=== PATIENT | female | born 1950 | race Caucasian/White ===

== ENCOUNTER 2024-03-04 12:00 | Inpatient (IN) | payer MEDICARE, SELFPAY ==
[2024-03-04] VITALS (7 sets, daily range): BP systolic 144–162; BP diastolic 64–89; BMI 26.2
--- NOTE | 2024-03-04 07:32 | ED.GENMED ---
History of Present Illness
General
Chief Complaint: Abdominal Symptoms
Source: patient
Exam Limitations: none
Time Seen by Provider: 03/04/24 07:04
Nursing documentation reviewed up to this point in time: agreed with
Travel History
Have you had any contact with someone who has COVID-19?: No
Do you have any symptoms of coronavirus? Fever > 100 degrees, chills, cough, shortness of breath, sore throat, loss of taste or smell, muscle aches, or headache?: No
History of Present Illness
History of Present Illness:
73 yr old female presents to the ED for evaluation. Pt reports she has a history of anxiety and has never been on prescribe medication. In fact she reports she recently had a physical with a family doctor [place] and was given a prescription for
Zoloft has not started yet. Typically with anxiety she will gag and reports last night she was up all night gagging feeling very nervous and vomiting. She does have some intermittent diarrhea. She feels swelling in her glands from vomiting. She
denies any abdominal pain. She denies any chest pain or shortness of breath. She does feel week.
Family at bedside.
She does drink 2 glasses of wine per day.
Review of Systems
Review of Systems
Allergies reviewed?: Yes
All Other Systems: ROS reviewed and negative except as documented in HPI and ROS
Constitutional: Reports no symptoms
Respiratory: Reports no symptoms
Cardiac: Reports no symptoms
ABD/GI: Reports nausea, vomiting and diarrhea
: Reports no symptoms
Musculoskeletal: Reports no symptoms
Neurological: Reports no symptoms
Psychiatric: Reports no symptoms
Phy Exam
General Physical Exam
General Presentation: no apparent distress
General age: appears stated age
General Skin: warm and dry
General Habitus: normal
General Mental: alert
General Hydration: dry mucous membranes
Cardiovascular Exam
Cardiovascular Exam: no murmur, normal peripheral pulses and tachycardia
Pulmonary Exam
Pulmonary Exam: lungs clear and no respiratory distress
Neurological Exam
Neurological Exam: alert and oriented x3
Musculoskeletal Exam
Musculoskeletal Exam: full ROM
Skin Exam
Skin Exam: normal color and warm/dry
Psychiatric Exam
Psychiatric Exam: normal mood/affect
Course
Orders/Labs/Results
Orders:
Orders
03/04/24 07:20
CMP [Comprehensive Metabolic Panel] Urgent
Complete Blood Count/With Diff Urgent
03/04/24 07:27
Electrocardiogram (*1) Urgent
Reason for Study: Bradycardia / Tachycardia
EKG- Treatment ONCE
03/04/24 07:31
0.9% Sodium Chloride 1000 ml [Nss] 1,000 ml IV BOLUS
Lorazepam [Ativan] 0.5 mg IV NOW STA
Ondansetron Injectable [Zofran] 4 mg IV NOW STA
03/04/24 08:49
US Abdomen Complete/Upper Urgent
Comment:
Reason For Exam: nausea elevated lfts and elevated wbc
03/04/24 Lunch
Regular
At Your Request: Full Participation
03/04/24 10:13
UA Reflex to Culture [Urinalysis Reflex To Culture] Urgent
Date Specimen was Collected: 03/04/24
Time Specimen was Collected: 10:12
03/04/24 10:29
Rapid Strep Group A Urgent
ROSALBA Source: Throat/Pharynx
Specimen Description:
Date Specimen was Collected: 03/04/24
Time Specimen was Collected: 09:15
03/04/24 11:40
Admit/Transfer Patient As Directed
Co-Sign Provider:
Level of Care: Inpatient admission
Assign to:: Telemetry
Physician / Group: hospitalist-Hiram
Diagnosis: symptomatic hyponatremia
Reason for Telemetry: Arrhythmia
Date to Stop Telemetry: 03/07/24
Time to Stop Telemetry: 11:00
Reason for Hospitalization: needs IVF
psych eval
renal eval
Expected length of stay greater than two midnights?: Yes
ELOS- Estimated Length of Stay in days: 2
I certify the patient meets the requirements for IP care: Yes
03/04/24 11:44
Code Status As Directed
Resuscitation Status: Full Code
03/04/24 11:45
0.9% Sodium Chloride 1000 ml [Nss] 1,000 ml IV 75 mls/hr
03/04/24 11:49
Benzocaine 20% [Hurricaine Brogan] See Dose Instructions TOPICAL Q6HPRN PRN
03/04/24 12:40
Acetaminophen [Tylenol] 650 mg PO Q4HPRN PRN
Bisacodyl [Dulcolax] 10 mg RECTAL [id number] PRN
Docusate W/Senna [Senokot-S] 1 tablet PO BIDPRN PRN
Ondansetron Injectable [Zofran] 4 mg IV Q6HPRN PRN
Polyethylene Glycol Powder [Miralax] 17 grams PO DAILYPRN PRN
03/04/24 12:40
PSYCHIATRY CONSULT Routine
Consulting Provider: Jared Aguirre
Was physician already notified: Yes
VTE Contraindication Routine
VTE Mechanical Device Contraindication: Low Risk- LOS < 2 days
Pharmocologic Contraindication: Low Risk- LOS < 2 days
Risk assessment completed and pt is low risk: Yes
Activity As Directed
Activity Level: Out of Bed-Early Mobility
Intake/ Output As Directed
Frequency: Per unit guidelines
Vital Signs As Directed
Frequency: Per unit guidelines
Pt Eval And Treat Routine
Activity Level: Out of Bed-Early Mobility
03/04/24 13:02
Free T4 Routine
Osmolality Serum [Serum Osmolality] Routine
TSH Reflex To Free T4 Routine
03/04/24 18:24
Basic Metabolic Panel Routine
03/04/24 22:00
Metoprolol Xl [Toprol Xl] 100 mg PO HS
03/05/24 06:00
Levothyroxine [Synthroid] 137 mcg PO DAILY@0600
03/05/24 06:32
Complete Blood Count/No Diff IN AM
Comprehensive Metabolic Panel IN AM
Magnesium IN AM
03/05/24 08:00
Calcium Carbonate [Oscal Vitaly 500] 500 mg PO DAILY
Cholecalciferol (Vitamin D3) [VITAMIN D3 (cholecalciferol)] 25 mcg PO DAILY
Multivitamin [Theragran] 1 tablet PO DAILY
03/07/24 11:00
DC Protocol for Telemetry ONCE
Abnormal Lab Results
03/04/24 03/04/24
07:20 10:13
WBC 13.9 H 10^3/uL
(4.8-10.8)
RBC 4.08 L 10^6/uL
(4.20-5.40)
MCH 33.8 H pg
(27.0-31.0)
MCHC 37.2 H g/dL
(33.0-37.0)
Abs Immat Gran (auto) 0.1 H 10^3/uL
(0-0.05)
Absolute Neuts (auto) 12.0 H 10^3/uL
(1.4-6.5)
Absolute Lymphs (auto) 1.1 L 10^3/uL
(1.2-3.4)
Absolute Monos (auto) 0.8 H 10^3/uL
(0.1-0.6)
Neutrophils % 85.9 H %
(42.2-75.2)
Lymphocytes % 7.7 L %
(20.5-51.1)
Sodium 127 L mmol/L
(135-145)
Potassium 3.4 L mmol/L
(3.5-5.1)
Chloride 88 L mmol/L
(98-107)
Glucose 158 H mg/dl
(70-99)
Total Bilirubin 2.8 H mg/dl
(0.2-1.3)
AST 119 H U/L
(14-36)
ALT 68 H U/L
(0-35)
Urine Ketones 2+ A
(Negative)
03/04/24 07:20
03/04/24 07:20
Vital Signs
Initial and Last Documented VS:
Initial Vital Signs
Temp Pulse Resp BP Pulse Ox
98.6 F 119 20 150/71 97
03/04/24 06:56 03/04/24 06:56 03/04/24 06:56 03/04/24 06:56 03/04/24 06:56
Last Documented Vital Signs
Temp Pulse Resp BP Pulse Ox
98.0 F 80 17 156/89 97
03/05/24 07:00 03/05/24 07:00 03/05/24 07:00 03/05/24 07:00 03/05/24 08:00
MDM/Problems Addressed
Differential Diagnosis Includes:
Not limited to anxiety dehydration electrolyte abnormality
MDM/Problems Addressed:
Patient is a 73-year-old female who presented with nausea gagging dry heaving intermittent diarrhea from anxiety. She reports she has had this several times in the past however anxiety is not treated. She recently had a family doctor appointment
and received a prescription for zolpidem not yet started. She complained of mild sore throat and felt that her glands were swollen because of all the vomiting. She feels that this is her anxiety she reports her and her are going through
some financial issues. She presents awake alert no acute distress. Patient was given small dose of Ativan Zofran and fluids. White count is minimally elevated the patient denies any fevers LFTs mildly elevated therefore ultrasound was done which
shows mild hepatomegaly diffuse fatty liver but no other acute findings/there is some suspected small parapelvic left renal cyst. With regards to liver functions patient is at no prior labs here and bilirubin is elevated 2.8 AST 119 ALT 68. Sodium
however is low at 127. With vomiting and low sodium would recommend admission.
*Critical Care Note
Total Time (30-74mins, 75-104mins- exclusive of procedures): Not Applicable
ED Attending Note
-
Portions of this chart may have been created with voice recognition software.� Occasional wrong word or��sound alike� substitutions may have occurred due to the inherent limitations of voice recognition software.
Discharge Plan
Departure
Patient Disposition: Admit
Date of Disposition: 03/04/24
Time of Disposition: 11:01
Admit to: Telemetry
Admit to doctor: hospitalist
Presentation/result/management discussed w/ accepting MD/DO: Hospitalist
Patient with high blood pressure during this ER visit?: Yes
Condition: Fair
Covid-19: Not Applicable
Discharge Problem:
Acute hyponatremia, Anxiety, Weakness
Interventions
Interventions:
*Risk Screen - Suicide Last Done: 03/04/24 07:28
*General Assessment Last Done: 03/04/24 07:28
*Neglect/Abuse Screening Last Done: 03/04/24 07:28
*ED COVID-19 Vaccine History Last Done: 03/04/24 07:28
*Nursing Disposition Last Done: 03/04/24 12:40
GU-Jqgdpw-Fisbqvvmdg Assessment Last Done: 03/04/24 07:28
Discharge Date and Time
Discharge Date/Time: 03/04/24 12:41
[2024-03-04] MEDS: NSS 1000 IV ×2 (07:42→13:00)
[2024-03-04] MEDS: ZOFRAN 4 MG IV (07:42)
[2024-03-04] MEDS: ATIVAN 0.5 MG IV (07:43)
[2024-03-04 07:47] LABS: % Basophils 0.4 % (0-2); % Immature Granulocytes 0.5 % (0-0.5); % Lymphocytes 7.7 % (20.5-51.1); % Monocytes 5.5 % (1.7-9.3); % Neutrophils 85.9 % (42.2-75.2); Absolute Basophils 0.1 10^3/uL (0-0.2); Absolute Immature Granulocytes 0.1 10^3/uL (0-0.05); Absolute Lymphocytes 1.1 10^3/uL (1.2-3.4); Absolute Monocytes 0.8 10^3/uL (0.1-0.6); Hematocrit 37.1 % (37.0-47.0); Hemoglobin 13.8 g/dL (12.0-16.0); Mean Corp Hgb Conc. 37.2 g/dL (33.0-37.0); Mean Corpuscular Hgb 33.8 pg (27.0-31.0); Mean Corpuscular Volume 90.9 fL (81.0-99.0); Mean Platelet Volume 9.8 fL (7.4-10.4); Nucleated Red Blood Cells % 0 %; Platelet Count 240 10^3/uL (130-400); Red Blood Cell Count 4.08 10^6/uL (4.20-5.40); Red Cell Dist. Width 11.9 % (11.5-14.5); White Blood Cell Count 13.9 10^3/uL (4.8-10.8)
[2024-03-04 07:53] LABS: ALT (SGPT) 68 U/L (0-35); AST (SGOT) 119 U/L (14-36); Albumin 4.8 g/dl (3.5-5.0); Alkaline Phosphatase 106 U/L (38-126); Blood Urea Nitrogen 15 mg/dl (7-17); Calcium 9.4 mg/dl (8.4-10.2); Carbon Dioxide 22 mmol/L (22-30); Chloride 88 mmol/L (98-107); Glucose 158 mg/dl (70-99); Potassium 3.4 mmol/L (3.5-5.1); Sodium 127 mmol/L (135-145); Total Bilirubin 2.8 mg/dl (0.2-1.3); Total Protein 8.1 g/dl (6.3-8.2); eGFR > 60.00
[2024-03-04 10:36] LABS: Urine Albumin Negative (Neg - Trace); Urine Bilirubin Negative (Negative); Urine Character Clear (Clear); Urine Color Yellow; Urine Glucose Negative (Negative); Urine Ketone 2+ (Negative); Urine Leukocyte Negative (Negative); Urine Nitrite Negative (Negative); Urine Occult Blood Negative (Negative); Urine Specific Gravity 1.015 (<1.030); Urine Urobilinogen Negative (Neg - 1+)
--- NOTE | 2024-03-04 11:39 | CM ---
Addendum entered by Sravani Banerjee 03/04/24 12:04:
Patient daughter Kassie corrected phone number of Sim patient son to [phone]. Patient moved to be closer to children and daughter is 2 miles from patient new home.
Original Note:
Patient seen at bedside with physician and patient also present. Patient lives with in a 2 story home. Patient has no DME at home with no VN supports. Patient stated her PCP is Dr. Ogden, in [place] and she uses the [facility] on [address] [place]. 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 Patient son will provide transportation and his name is Sim. phone number is [phone]. Patient indicated that she would be happy if CM talked to patient son. Patient
indicated that she does use alcohol and would be willing to talk to Psych about anxiety. CM will continue to follow for discharge planning needs.
Plan; home with no needs vs home with VN watch for assessments.
--- NOTE | 2024-03-04 11:50 | HPS.HSE ---
Family Physician
-
Family Physician: Dr. Marlena Ogden
Chief Complaint
-
Nausea, vomiting, diarrhea
History of Present Illness
Patient is a 73-year-old female with a past medical history significant for anxiety who self medicates with alcohol, 2 glasses of wine per night. She stated that she has had nausea and vomiting since yesterday and diarrhea for at least 2 days prior
to admission. She stated that she has not been eating or drinking, felt dehydrated, and her legs and hands felt shaky. She has not had alcohol for the last 4 days although she denies any withdrawal symptoms as a result of stopping alcohol. She
attributes the shakiness and significant gag reflex more towards anxiety. She denied fevers and abdominal pain. She states that food has no flavor. No one else is sick at home. When her symptoms did not improve she came to the hospital for
evaluation. Workup here finds her to have a sodium level of 124, elevated white blood cell count of 13.9 and patient is being admitted.
Medical History
Past Medical History
Past Medical History: Reports Other
Additional Past Medical History:
Anxiety
Essential hypertension
Hypothyroidism
Hyperlipidemia
Past Surgical History: Reports None and Other
Social History
Tobacco: Non-smoker
Alcohol: Daily (2 glasses of wine per night--no alcohol intake for the last 4 days)
Drug: None
Personal:
Living: With Family
Family History
Family History: Other (Mother and sister have/had Alzheimer's disease, brother with MS)
Allergies / Home Medications
Allergies reflects when Allergies were last updated in [employer].
Home Medications with original date entered in [employer]
Allergy/Medication List:
Allergies
Allergy/AdvReac Type Severity Reaction Status Date / Time
No Known Allergies Allergy Unverified 03/04/24 07:03
Home Medications
calcium carbonate 500 mg PO DAILY 03/04/24
cholecalciferol (vitamin D3) 25 mcg (1,000 unit) tablet (Vitamin D3) 25 mcg PO DAILY 03/04/24
ibuprofen 200 mg tablet (Advil) 400 mg PO Q6HPRN PRN mild pain 03/04/24
levothyroxine 137 mcg tablet 137 mcg PO DAILY 03/04/24
lisinopril 20 mg-hydrochlorothiazide 25 mg tablet 1 tab PO HS 03/04/24
loperamide 2 mg tablet (Imodium A-D) 2 mg PO QIDPRN PRN diarrhea 03/04/24
metoprolol succinate 100 mg tablet,extended release 24 hr 100 mg PO HS 03/04/24
simvastatin 20 mg tablet 20 mg PO HS 03/04/24
therapeutic multivitamin 1 tab PO DAILY 03/04/24
Review of Systems
-
History Source: Patient and Family
A 12 point ROS was completed and negative except as noted: Yes
Constitutional: Denies Fever
EENT: Reports Sore Throat
Respiratory: Denies Cough or Trouble Breathing
Cardiac: Denies Chest Pain or Palpitations
Abdomen/GI: Reports Nausea, Vomiting and Diarrhea; Denies Abdominal Pain or Constipated
: Reports No Symptoms
Musculoskeletal: Reports Other (shakiness/weakness)
Skin: Reports No Symptoms
Neurological: Reports Dizzy
Endocrine: Reports No Symptoms
Hematologic/Lymphatic: Reports No Symptoms
Psych: Reports Anxiety
Physical Exam
Vital Signs
Vital Signs
Temp Pulse Resp BP Pulse Ox
98.6 F 101 18 144/70 99
03/04/24 06:56 03/04/24 11:03 03/04/24 11:03 03/04/24 11:03 03/04/24 11:03
Physical Exam
General: Well Developed, Well Nourished and No Apparent Distress
HEENT: NormoCephalic, Anicteric and Pharyngeal Efythema (no exudate)
Respiratory: Clear; No Wheezes, Rales, Rhonchi or Crackles
Cardiac: S1/S2, Regular Rhythm and Tachycardia
GI: Soft, Non Tender, Non Distended and Normal Bowel Sounds
Musculoskeletal: No Clubbing, No Cyanosis and No Edema
Skin: Warm and Dry
Neuro: Awake and Alert
Psych: Anxious
Laboratory Results
-
03/04/24 07:20
03/04/24 07:20
Laboratory Results
Total Bilirubin 2.8 mg/dl (0.2-1.3) H 03/04/24 07:20
AST 119 U/L (14-36) H 03/04/24 07:20
ALT 68 U/L (0-35) H 03/04/24 07:20
Alkaline Phosphatase 106 U/L (38-126) 03/04/24 07:20
Impression/Plan
-
Pt is a 73 year old female
n/v/d --(despite elevated HR and WBC count DO NOT suspect sepsis, WBC likely reactive)-- likely due to anxiety but cannot rule out gastroenteritis or due to hyponatremia -- ADMIT to tele--regular diet as tolerated--NSS 75ml x 1L--consult psych--if
no improvement with anti-emetics then consult GI
symptomatic hyponatremia -- could be from HCTZ (component of combination/lisinopril BP med) vs poor oral intake (does have ketones in urine)--has not yet started zoloft for anxiety so likely not that--check TSH, urine and serum osmolalities, give 1L
NSS, recheck BMP at 6PM--if not improved by morning then consult renal
essential HTN -- cont metoprolol with parameters--hold HCTZ--can give lisinopril also with parameters
hypothyroid -- check TSH--cont levothyroxine
HLD -- cont simvastatin
ETOH use -- LFTs mildly increased -- abdominal US shows fatty liver only--counselled to quit
DVT proph -- low risk
code status -- FULL CODE
[2024-03-04 13:55] LABS: Osmolality Serum 273 mOsm/kg (275-300)
[2024-03-04 14:51] LABS: TSH Reflex To Free T4 7.47 uIU/ml (0.47-4.68)
--- NOTE | 2024-03-04 15:09 | W.PN.UPDATE ---
Update Note
Progress Note Update
Reviewed with Hospitalist; pt known to me personally, is friend/neighbor. Will hold off consultation until another psych provider is available. Agree with giving Ativan for acute anxiety.
[2024-03-04 15:20] LABS: Free T4 0.61 ng/dl (0.78-2.19)
[2024-03-04] MEDS: HURRICAINE SPRAY 1 APPLIC TOPICAL (17:22)
[2024-03-04 18:45] LABS: Blood Urea Nitrogen 8 mg/dl (7-17); Calcium 8.7 mg/dl (8.4-10.2); Carbon Dioxide 27 mmol/L (22-30); Chloride 94 mmol/L (98-107); Estimated Creatinine Clearance 70 ml/min; Glucose 122 mg/dl (70-99); Potassium 3.3 mmol/L (3.5-5.1); Sodium 130 mmol/L (135-145); eGFR > 60.00
[2024-03-04 20:35] LABS: Hepatitis C Antibody Negative (Negative)
[2024-03-04] MEDS: LIPITOR 10 MG PO (22:00)
[2024-03-04] MEDS: TOPROL XL 100 MG PO (22:00)
[2024-03-04] MEDS: ZESTRIL 20 MG PO (22:00)
[2024-03-05 03:00] VITALS: BP 129/75
[2024-03-05] MEDS: NSS 1000 IV (03:02)
[2024-03-05] MEDS: SYNTHROID 137 MCG PO (06:08)
[2024-03-05 07:00] VITALS: BP 156/89
[2024-03-05 07:10] LABS: Hematocrit 34.2 % (37.0-47.0); Hemoglobin 12.1 g/dL (12.0-16.0); Mean Corp Hgb Conc. 35.4 g/dL (33.0-37.0); Mean Corpuscular Hgb 34.2 pg (27.0-31.0); Mean Corpuscular Volume 96.6 fL (81.0-99.0); Mean Platelet Volume 9.9 fL (7.4-10.4); Platelet Count 168 10^3/uL (130-400); Red Blood Cell Count 3.54 10^6/uL (4.20-5.40); Red Cell Dist. Width 11.7 % (11.5-14.5); White Blood Cell Count 6.3 10^3/uL (4.8-10.8)
[2024-03-05] MEDS: OSCAL CAL 500 500 MG PO (07:40)
[2024-03-05] MEDS: VITAMIN D3 (cholecalciferol) 25 MCG PO (07:40)
[2024-03-05] MEDS: THERAGRAN 1 TABLET PO (07:40)
[2024-03-05 07:53] LABS: ALT (SGPT) 48 U/L (0-35); AST (SGOT) 75 U/L (14-36); Albumin 3.7 g/dl (3.5-5.0); Alkaline Phosphatase 71 U/L (38-126); Blood Urea Nitrogen 6 mg/dl (7-17); Carbon Dioxide 28 mmol/L (22-30); Chloride 100 mmol/L (98-107); Estimated Creatinine Clearance 82 ml/min; Glucose 123 mg/dl (70-99); Magnesium 1.7 mg/dl (1.6-2.3); Potassium 3.7 mmol/L (3.5-5.1); Sodium 135 mmol/L (135-145); Total Bilirubin 2.1 mg/dl (0.2-1.3); Total Protein 6.6 g/dl (6.3-8.2); eGFR > 60.00
--- NOTE | 2024-03-05 08:58 | W.PN.HOSP.TC ---
Addendum entered and electronically signed by Leigha Gandhi MD 03/05/24 19:27:
Patient seen and examined independently--agree with plan set forth by Dr. Pritchett
GENERAL: well developed, well nourished, female in no apparent distress
HEENT: NC/AT--no O2 requirements
HEART: regular rate and rhythm, +S1, +S2
LUNGS : clear to auscultation bilaterally
ABDOM: soft, nontender, nondistended, + bowel sounds
EXT: no cyanosis, clubbing, or edema
NEUROLOGIC: grossly intact
PSYCH: anxious
n/v/d --resolved--(despite elevated HR and WBC count DO NOT suspect sepsis, WBC likely reactive)-- likely due to anxiety --regular diet as tolerated--NSS 75ml x 1L--did not stay for psych eval
symptomatic hyponatremia -- likely from HCTZ (component of combination/lisinopril BP med) vs poor oral intake (hypovolemia)--has not yet started zoloft for anxiety so likely not that--TSH elevated at 7--will need adjustment in levothyroxine dose,
s/p 1L NSS-- resolved
essential HTN -- cont metoprolol with parameters--stop HCTZ at d/c--can give lisinopril also with parameters
hypothyroid -- TSH elevated--increase levothyroxine dose--recheck TSH in 4 weeks
HLD -- cont simvastatin
ETOH use -- LFTs mildly increased -- abdominal US shows fatty liver only--counselled to quit
DVT proph -- low risk
code status -- FULL CODE
OK for d/c
Original Note:
Today's Communication/Plan
-
Discharge
Assessment / Plan
Assessment / Plan
Assessment
73-year-old female with past medical history significant for anxiety, hypertension, hypothyroidism, hyperlipidemia, IBS, admitted for evaluation of her nausea/vomiting/diarrhea since 2 days. Patient states she drinks around 2 glasses of wine per
night which calms her anxiety.Workup in the ER showed sodium level of 124, leukocytosis. She was started on IVF�normal saline.
Impression
Symptomatic hyponatremia
Nausea/vomiting/diarrhea
Essential hypertension
Hypothyroidism
Hyperlipidemia
Elevated transaminases
Plan
#Symptomatic hyponatremia
Possibly due to use of of HCTZ for hypertension versus hypothyroidism versus poor oral intake
Started on IVF�normal saline
Sodium improved to 135 today
TSH�7.47
#Nausea/vomiting/diarrhea
Likely due to anxiety versus gastroenteritis versus hyponatremia
Leukocytosis, WBC 13.9 on admission
Trended down to 6.3 today
Most likely reactive leukocytosis
Patient has clinically improved
#Essential hypertension
Continue metoprolol
continue lisinopril
Hold HCTZ
#Hypothyroidism
Continue levothyroxine
TSH 7.47
#Hyperlipidemia
Continue simvastatin
#Elevated transaminases
LFTs trended down
Ultrasound abdomen�hepatomegaly with diffuse fatty liver
History of alcohol use
Anticipated Discharge: Today
Subjective/Interval History
-
Date of Service: March 05, 2024
Patient appears comfortable. Does not report any nausea/vomiting/diarrhea.
Objective Data
-
Labs:
Laboratory Results
03/05/24
06:32
WBC 6.3
Hgb 12.1
Hct 34.2 L
Plt Count 168 D
Sodium 135
Potassium 3.7
Chloride 100
Carbon Dioxide 28
BUN 6 L
Creatinine 0.6
Glucose 123 H
Calcium 9.0
Total Bilirubin 2.1 H
AST 75 H
ALT 48 H
Alkaline Phosphatase 71
Vital Signs:
Vital Signs
Temp Pulse Resp BP Pulse Ox
98.0 F 80 17 156/89 97
03/05/24 07:00 03/05/24 07:00 03/05/24 07:00 03/05/24 07:00 03/05/24 08:00
I&O
03/04/24 03/05/24 03/06/24
06:59 06:59 06:59
Intake Total 740 / 740
Balance 740 / 740
Review of Systems
-
All other systems: Reviewed and negative (As per HPI)
Physical Exam
-
General: Well Developed and Well Nourished
HEENT: Normocephalic and Atraumatic
Respiratory: Clear to Auscultation
Cardiac: S1/S2
GI: Soft, Nontender, Nondistended and Normal Bowel Sounds
Skin: Warm and Dry
Neuro: Awake, Alert, Oriented and AO x 3
Psych: Calm
[2024-03-05 09:31] VITALS: BP 140/76; PULSE 79; O2SAT 97
--- NOTE | 2024-03-05 09:39 | PTOTSP ---
Pt feels fine today. She is able to ambulate in hallway and on stairs without need for any assistive devices or physical assistance. No PT needs were identified. PT will sign off now.
--- NOTE | 2024-03-05 10:09 | CM ---
Addendum entered by Sravani Banerjee 03/05/24 15:14:
[facility] met with patient (rohit) and will provide further supports via email/phone
Original Note:
Patient stated that she was feeling much better, PT/OT assessed patient with no needs at this time. CM provided IMM and signed form placed on chart. CM will continue to follow for discharge planning needs.
Plan; home with no needs; follow up with psych vs [facility]
[2024-03-05 11:00] VITALS: BP 130/67
[2024-03-05 14:47] VITALS: BP 125/79
--- NOTE | 2024-03-05 19:14 | W.DCSUMMARY ---
Addendum entered and electronically signed by Leigha Gandhi MD 03/05/24 19:31:
Read fully the d/c summary set forth by Dr. Pritchett and agree with documentation as outlined.
Patient was not evaluated by psychiatry as planned due to the fact that the psychiatrist on-call is her neighbor and did not feel comfortable in that regard. She has been instructed to discuss with her primary care physician referrals for
psychiatry to help manage her anxiety. Would not give patient Zoloft at discharge.
Original Note:
Discharge Summary
Discharge Data
Date of Admission: 03/04/24
Date of Discharge: 03/05/24
-
Pending Results: No
Hospital Course
Primary care physician : Dr. Marlena Ogden
Principal Discharge diagnosis : Acute hyponatremia
Chronic Discharge diagnosis : Essential hypertension, hypothyroidism, hyperlipidemia, alcohol use, history of anxiety, IBS
Hospital Course : 73-year-old female with past medical history significant for anxiety, hypertension, hypothyroidism, hyperlipidemia, IBS, admitted for evaluation of her nausea/vomiting/diarrhea since 2 days. Patient states she drinks around 2
glasses of wine per night which calms her anxiety.Workup in the ER showed sodium level of 124, leukocytosis. She was started on IVF�normal saline.TSH�7.47. Ultrasound abdomen�hepatomegaly with diffuse fatty liver. HCTZ was put on hold, patient
continued on metoprolol, lisinopril, simvastatin and levothyroxine. Patient has clinically improved, nausea/vomiting/diarrhea has improved. Her leukocytosis trended down to 6.3, sodium back to 135. Transaminases trended down. Patient is
clinically stable for discharge. Advised to follow-up with her primary care, outpatient GI follow-up for IBS. Patient states that she was recently started on Zoloft for her anxiety by her primary care, advised to reconsider after discussion with
her primary due to her hyponatremia. At the discharge her levothyroxine dose was increased to 150 mcg per oral, daily.
Discharge Plan
-
Patient Disposition: Home (Routine Discharge)
Discharge Diagnosis/Procedures: acute hyponatremia, essential hypertension, hyperlipidemia, hypothyroidism, alcohol use.
Condition: Good
Diet: As tolerated
Activity: As tolerated
Driving Restrictions: As prior to admission
Bathing Restrictions: None
Blood Work: TSH in 4- 6 weeks
Activity Restrictions/Additional Instructions:
Please follow up with primary care within a week from the day of discharge.
Please follow up with GI in a week from the day of discharge.
Referrals:
UNKNOWN - PT DOES,NOT KNOW [Family Provider] -
Prescriptions:
New
bisacodyl 10 mg Suppository
10 mg LA [id number] PRN (Reason: constipation) 15 Days Qty: 12 0RF
polyethylene glycol 3350 [HealthyLax] 17 gram Powder In Packet
17 g PO DAILYPRN PRN (Reason: constipation) 30 Days Qty: 14 0RF
atorvastatin 10 mg Tablet
10 mg PO HS Qty: 30 0RF
sennosides-docusate sodium [Stool Softener-Stimulant Laxat] 8.6-50 mg Tablet
1 tab PO BIDPRN PRN (Reason: constipation) 30 Days Qty: 30 0RF
lisinopril 20 mg Tablet
20 mg PO HS Qty: 30 0RF
levothyroxine 150 mcg capsule
150 mcg PO DAILY 60 Days Qty: 60 0RF
Continued
metoprolol succinate 100 mg Tablet Extended Release 24 Hr
100 mg PO HS
loperamide [Imodium A-D] 2 mg Tablet
2 mg PO QIDPRN PRN (Reason: diarrhea)
therapeutic multivitamin Tablet
1 tab PO DAILY
calcium carbonate 500 mg calcium (1,250 mg) Tablet
500 mg PO DAILY
simvastatin 20 mg Tablet
20 mg PO HS
ibuprofen [Advil] 200 mg Tablet
400 mg PO Q6HPRN PRN (Reason: mild pain)
cholecalciferol (vitamin D3) [Vitamin D3] 25 mcg (1,000 unit) Tablet
25 mcg PO DAILY
Discontinued
levothyroxine 137 mcg Tablet
137 mcg PO DAILY
lisinopril-hydrochlorothiazide 20-25 mg Tablet
1 tab PO HS
Discharge Orders:
Discharge Patient (As Directed); Ordered 03/05/24
Ordered By: Jade Pritcehtt
Discharge Date and Time
Discharge Date/Time: 03/05/24 16:00
Print Language: TAIWANESE
== END 2024-03-05 16:00 | disposition home or self-care (01) | DRG 641 ==
LOC: 3 WEST ACU 12:00
PROVIDERS: Nurse Practitioner; Student in an Organized Health Care Education/Training Program; ADMITTING PHYSICIAN Internal Medicine; EMERGENCY PHYSICIAN Emergency Medicine
DX: E87.1 Hypo-osmolality and hyponatremia (principal); I10 Essential (primary) hypertension; E03.9 Hypothyroidism, unspecified; E78.5 Hyperlipidemia, unspecified; F41.9 Anxiety disorder, unspecified; F10.90 Alcohol use, unspecified, uncomplicated; K58.9 Irritable bowel syndrome, unspecified; R19.7 Diarrhea, unspecified; R79.89 Other specified abnormal findings of blood chemistry; Z79.890 Hormone replacement therapy; Z79.899 Other long term (current) drug therapy
CPT/HCPCS: 76700; 80048; 80053; 81003; 83735; 83930; 84439; 84443; 85025; 85027; 86803; 87070; 87880; 93005; 96374; 96375; 97162; 99285